=== PATIENT | female | born 2000 | race Caucasian/White ===

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

== ENCOUNTER 2022-05-28 15:15 | Outpatient (RCR) | payer OTHER, SELFPAY | END 2022-08-26 23:59 | disposition home or self-care (01) | LOC: ANHLAB 15:15 | PROVIDERS: PCP Physician Assistant; Visit Provider Obstetrics & Gynecology | DX: O26.859 Spotting complicating pregnancy, unspecified trimester (principal); Z3A.00 Weeks of gestation of pregnancy not specified | CPT/HCPCS: 36415; 84702; 85461; 86850; 86900; 86901 ==